=== PATIENT | male | born 1975 | race Two or more races ===

== ENCOUNTER 2022-07-12 20:12 | Emergency (ER) | payer SELFPAY ==
--- NOTE | 2022-07-12 23:00 | NUR ---
PATIENT WAS JUST CALLED NOW TO BE TRIAGED DUE TO SHORT STAFFING IN THE ER AND ALL BEDS OCCUPIED IN THE ER. BUT PATIENT WAS NOT PRESENT IN THE WAITING ROOM OR OUTSIDE OF ER.
--- NOTE | 2022-07-12 23:30 | NUR ---
PATIENT WAS CALLED TO BE TRIAGED BUT WAS NOT PRESENT IN THE WAITING OOM.
--- NOTE | 2022-07-12 23:45 | NUR ---
PATIENT WAS CALLED TO BE TRAIGED BUT WAS NOT PRESENT . PATIENT WAS NOT TRIAGED OR SEEN BY [facility].
== END 2022-07-12 23:45 | disposition left against medical advice (07) ==
LOC: ER 20:12
DX: Z53.21 Procedure and treatment not carried out due to patient leaving prior to being seen by health care provider (principal)